=== PATIENT | female | born 2000 | race Caucasian/White ===

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

== ENCOUNTER 2020-04-23 08:21 | Emergency (ER) | payer OTHER, SELFPAY ==
[2020-04-23 08:35] VITALS: BP 131/85; PULSE 98; RESP 16; TEMP 36.6; O2SAT 100; BMI 34.0
--- NOTE | 2020-04-23 08:46 | ED_ITS ---
HPI - General Adult General: Chief complaint: Abdominal Pain Stated complaint: ABD Pain Time Seen by Provider: 04/23/20 08:35 History of Present Illness: HPI narrative: Patient complains about painful. That started this morning. Said she had a severe cramping felt like her vagina was going to fall out. Said the pain is eased up now she does feel better had some heavy clots. Has been off work controlled for the last 4 months. Used to be on progesterone only due to her PCOD. Patient does not think she can be right now but she is sexually active with unprotected intercourse denies any other illness complaint: Uterine cramping menstrual cycle Onset (ago): hour(s) Severity scale (1-10): 6 Quality: aching Pain Consistency: colicky Associated symptoms: Reports no associated symptoms; Deny chest pain, dyspnea, headache(s), nausea, rash or vomiting Review of Systems Const: Denies: fever(s), chills or body aches Eyes: Denies: change in vision or blurry vision ENMT: Denies: throat pain or nasal congestion Card: Denies: chest pain or dyspnea on exertion Resp: Denies: dyspnea, productive cough or non-productive cough GI: Denies: abdominal pain, nausea or vomiting : Reports: dysmenorrhea Musc: Denies: extremity pain Skin/Breast: Denies: rash Neuro: Denies: headache(s) Psych: Denies: anxiety or depression Shnae/Lymph: Denies: easy bruising PFSH ED PFSH: Surgical History Status post laparoscopic appendectomy 12/05/2018 Dr. Baez/[place], [place] Family History Sister Diabetes Father Heart disease Hypertension Stroke Grandfather Heart disease Paternal Hypertension Grandmother Hypertension Maternal and Paternal Grandfather No problems noted. Social History Smoking and tobacco status: never smoked Alcohol intake: never Female Reproductive History: Date of last menstrual period: 04/23/20 Physical Exam Const: COMMON NORMALS: no acute distress, average body habitus and patient oriented x3 HENMT: COMMON NORMALS: normocephalic HEAD & SCALP: normal to inspection and normocephalic FACE & SINUS: normal facial exam Eye: COMMON NORMALS: conjunctivae normal GENERAL EYE: appearance normal, both eyes and all related structures CONJUNCTIVA: Yes conjunctivae normal Neck/C-Spine: COMMON NORMALS: no JVD Chest: COMMONS NORMALS: normal inspection of the chest Resp: COMMON NORMALS: normal respiratory effort Cardio: COMMON NORMALS: no JVD, regular rate and regular rhythm RATE: regular rate RHYTHM: regular rhythm GI: COMMON NORMALS: Normal to inspection, nondistended, normoactive bowel sounds present Extremity: COMMON NORMALS: normal to inspection and full ROM Neuro: COMMON NORMALS: patient oriented x3 Course Vital Signs: Vital signs: Vital Signs Temperature 97.9 F 04/23/20 08:35 Pulse Rate 98 04/23/20 08:35 Respiratory Rate 18 04/23/20 09:54 Blood Pressure 131/85 04/23/20 08:35 Pulse Oximetry 100 04/23/20 08:35 MDM - General Adult MDM Narrative: Medical decision making narrative: Patient started menstrual cycle here 2 days ago. Woke up this morning with painful vaginal cramping heavier clots. Denies any discharge fever chills or problems urinating. Naproxen took care of pain. Patient continue naproxen follow-up primary care provider. Lab Data: Labs: Lab Results 04/23/20 04/23/20 04/23/20 Range/Units 08:50 08:50 08:50 WBC 12.7 (4.5-13.0) 10^3/ uL RBC 4.82 (4.1-5.3) 10^6/u L Hgb 14.1 (11.5-15.3) g/dL Hct 41.9 (37.0-47.0) % MCV 86.9 (81-99) fL MCH 29.3 (28.0-34.0) pg MCHC 33.7 (30.0-36.0) g/dL RDW 12.2 (12.1-15.1) % Plt Count 350 (130-400) 10^3/c mm MPV 9.4 (7.4-10.4) fL Neut % (Auto) 65.0 % Lymph % (Auto) 26.7 % [place] % (Auto) 6.3 % Eos % (Auto) 1.2 % Baso % (Auto) 0.4 % Neut # (Auto) 8.27 H (1.8-8.0) 10^3/u L Lymph # (Auto) 3.4 (1.5-6.5) 10^3/u L [place] # (Auto) 0.8 (0.2-0.9) 10^3/u L Eos # (Auto) 0.2 (0.0-0.8) 10^3/u L Baso # (Auto) 0.1 (0.0-0.1) 10^3/u L Nucleated RBC % (a uto) 0 % Nucleated RBCs # 0.0 /100WBC Ser , Arianna i-Qnt 0.50 mIU/mL Urine Color Dark yellow (Yellow) Urine Appearance Cloudy (CLEAR) Urine pH 5 (5-7) Ur Specific Gravit y 1.030 (1.005-1.030) Urine Protein 1+ H (Negative) Urine Glucose (UA) Norm (Normal) Urine Ketones 1+ H (Negative) Urine Blood 3+ H (Negative) Urine Nitrate Negative (Negative) Urine Bilirubin 1+ H (Negative) Urine Urobilinogen Norm (Negative) mg/dL Ur Leukocyte Monae ase Trace H (Negative) Urine RBC Too numerous to c nt H (0-2) /hpf Urine WBC 0-4 H (0-5) /hpf Ur Squamous Epith Cells 0-4 H (0-5) /hpf Amorphous Sediment Not Reportable Urine Bacteria 1+ H (NONE) /hpf Discharge Plan Discharge Patient Disposition: Home Clinical Impression: Menstrual pain Condition: Stable Prescriptions: New Naprosyn 500 mg tablet 500 mg PO TID PRN (Reason: pain) Qty: 14 RF: 0 No Action famotidine 20 mg tablet 20 mg PO DAILY Qty: 30 RF: 0 cetirizine 10 mg tablet 10 mg PO DAILY Qty: 30 RF: 0 Discharge Orders: Discharge ED (Routine); Ordered 04/23/20 Ordered By: David Garza Referrals: Negin Garrett MD [Primary Care Provider] - Discharge Diet: Usual diet Discharge Activity: Resume usual activity Patient Instructions: Menorrhagia (ED) Activity Restrictions/Additional Instructions: Follow-up with medical provider as directed. Take medications as prescribed. Return to the ER or your medical provider if condition worsens. Please read and understand discharge instructions. If any questions ask please. Coding Level of Care Code ED Fumigator And Sterilizer for Robinson Fwd Exam Comprehensive
[2020-04-23] MEDS: naproxen 500 mg Tablet PO (08:57)
[2020-04-23 09:07] LABS: Basophils # 0.1 10^3/uL (0.0-0.1); Basophils % 0.4 %; Eosinophils # 0.2 10^3/uL (0.0-0.8); Eosinophils % 1.2 %; Hematocrit 41.9 % (37.0-47.0); Hemoglobin 14.1 g/dL (11.5-15.3); Lymphocytes # 3.4 10^3/uL (1.5-6.5); Lymphocytes % 26.7 %; Mean Corpuscular HGB Conc 33.7 g/dL (30.0-36.0); Mean Corpuscular Hemoglobin 29.3 pg (28.0-34.0); Mean Corpuscular Volume 86.9 fL (81-99); Mean Platelet Volume 9.4 fL (7.4-10.4); Monocytes # 0.8 10^3/uL (0.2-0.9); Monocytes % 6.3 %; Neutrophils # 8.27 10^3/uL (1.8-8.0); Nucleated Red Blood Cells % 0 %; Platelet Count 350 10^3/cmm (130-400); Red Blood Count 4.82 10^6/uL (4.1-5.3); Red Cell Distribution Width 12.2 % (12.1-15.1); White Blood Count 12.7 10^3/uL (4.5-13.0)
[2020-04-23 09:08] LABS: Add Urine Microscopic? YES; Bilirubin Urine 1+ (Negative); Blood Urine 3+ (Negative); Glucose Urine UA Norm (Normal); Ketones Urine 1+ (Negative); Leukocyte Esterase Urine Trace (Negative); Nitrate Urine Negative (Negative); Protein Urine 1+ (Negative); Urine Appearance Cloudy (CLEAR); Urine Color Dark Yellow (Yellow); Urobilinogen Urine Norm (Negative); pH Urine 5 (5-7)
[2020-04-23 09:15] LABS: Add Urine Culture? Yes; Bacteria Urine 1+ /hpf; RBC Urine TOO NUMEROUS TO CNT /hpf (0-2); Squamous Epithelial Cell Urine 0-4 /hpf (0-5); WBC Urine 0-4 /hpf (0-5)
[2020-04-23 09:27] VITALS: RESP 18
[2020-04-23 09:54] VITALS: RESP 18
== END 2020-04-23 09:56 | disposition home or self-care (01) ==
PROVIDERS: Emergency Provider Nurse Practitioner Family; PCP Family Medicine
DX: N94.6 Dysmenorrhea, unspecified (principal)
CPT/HCPCS: 12345; 81001; 84702; 85025; 87086; 99283

== ENCOUNTER → 2020-06-20 16:34 | Outpatient (BNVA) | payer OTHER, SELFPAY | PROVIDERS: PCP Physician Assistant; Visit Provider Nurse Practitioner Family | DX: N76.0 Acute vaginitis (principal); R30.0 Dysuria; B96.89 Other specified bacterial agents as the cause of diseases classified elsewhere | CPT/HCPCS: 81000; 87491; 87591; 87661 ==

== ENCOUNTER 2023-02-11 20:02 | Emergency (ER) | payer BC, MEDICAID, SELFPAY ==
[2023-02-11 20:15] VITALS: BP 147/90; PULSE 72; RESP 18; TEMP 36.5; O2SAT 98; BMI 32.1
--- NOTE | 2023-02-11 20:27 | ED_ITS ---
HPI - Female Genitourinary General: Chief complaint: Urogenital-Female Stated complaint: abdomen pain Time Seen by Provider: 02/11/23 20:22 History of Present Illness: Patient presents to the ER with left upper quadrant intermittent abdominal pain x2 days and also having pain burning and frequency when she urinates with blood in her urine for the last couple days. Review of Systems General: Reports: 10 or more systems reviewed and unremarkable except in HPI and below PFSH ED PFSH: Surgical History Status post laparoscopic appendectomy 12/05/2018 Dr. Baez/[place], [place] Family History Sister Diabetes Father Heart disease Hypertension Stroke Grandfather Heart disease Paternal Hypertension Grandmother Hypertension Maternal and Paternal Grandfather No problems noted. Social History Smoking and tobacco/nicotine status: never used tobacco/nicotine Alcohol intake: never Substance/Drug Use: never Physical Exam Const: COMMON NORMALS: no acute distress, average body habitus, patient oriented x3, no limitations, healthy appearing, alert and well nourished HENMT: COMMON NORMALS: normocephalic, atraumatic, hearing grossly normal bilaterally, external ears normal, Normal external nose present, moist oral mucous membranes and oropharynx normal HEAD & SCALP: normocephalic and atraumatic NOSE: Normal external nose present EXTERNAL EAR: Yes external ears normal Neck/C-Spine: COMMON NORMALS: no JVD Chest: COMMONS NORMALS: normal inspection of the chest and normal palpation of entire chest wall Resp: COMMON NORMALS: normal respiratory effort, No retractions, No use of accessory muscles and clear to auscultation bilaterally AUSCULTATION: clear to auscultation bilaterally Cardio: COMMON NORMALS: no JVD, regular rate, regular rhythm, S1 normal heart sound present, S2 normal heart sound present, No gallops present (Cardio), No clicks present (Cardio), No murmurs present (Cardio) and No rub (Cardio) RA TE: regular rate RHYTHM: regular rhythm HEART SOUNDS: S1 normal heart sound present and S2 normal heart sound present GI: COMMON NORMALS: Normal to inspection, nondistended, normoactive bowel sounds present, Soft to palpation, non-tender, No hepatosplenomegaly present and no masses PALPATION: Yes Soft to palpation and Yes No hepatosplenomegaly present Neuro: COMMON NORMALS: patient oriented x3 SENSORIUM/ORIENTATION: Yes alert Course Vital Signs: Vital signs: Vital Signs Temperature 97.7 F 02/11/23 20:15 Pulse Rate 72 02/11/23 20:15 Respiratory Rate 18 02/11/23 20:15 Blood Pressure 147/90 02/11/23 20:15 Pulse Oximetry 98 02/11/23 20:15 MDM - Female Medical Decision Making Blood work was obtained which revealed a white count of 14,000, urinalysis showed a urinary tract infection. Patient was given Cipro in ER and will be discharged home on Cipro. Patient should follow-up with her family practice physician in the next 7 to 10 days for further evaluation and treatment as needed. Differential Diagnosis Likely abdominal pain; Unlikely acute appendicitis, calculus of kidney, constipation, diverticulitis, endometriosis, gastroenteritis, pancreatitis or small bowel obstruction Medical Records I reviewed the patient's medical records. Lab Data I reviewed the patient's lab results. 02/11/23 20:14 02/11/23 20:14 Laboratory Results WBC 14.17 10^3/uL (3.29-11.43) H 02/11/23 20:14 RBC 4.71 10^6/uL (3.85-5.65) 02/11/23 20:14 Hgb 11.40 g/dL (11.27-16.99) 02/11/23 20:14 Hct 37.0 % (36-47) 02/11/23 20:14 MCV 78.6 fl (85-98) L 02/11/23 20:14 MCH 24.2 pg (27-33) L 02/11/23 20:14 MCHC 30.8 g/dL (30-55) 02/11/23 20:14 RDW 14.5 % (12.1-15.1) 02/11/23 20:14 Plt Count 349 10^3/cmm (157-399) 02/11/23 20:14 MPV 9.7 fL (7.4-10.4) 02/11/23 20:14 Neut % (Auto) 62.7 % 02/11/23 20:14 Lymph % (Auto) 29.0 % 02/11/23 20:14 [place] % (Auto) 4.7 % 02/11/23 20:14 Eos % (Auto) 2.6 % 02/11/23 20:14 Baso % (Auto) 0.6 % 02/11/23 20:14 Neut # (Auto) 8.89 10^3/uL (1.8-7.7) H 02/11/23 20:14 Lymph # (Auto) 4.1 10^3/uL (0.8-4.8) 02/11/23 20:14 [place] # (Auto) 0.7 10^3/uL (0.2-0.9) 02/11/23 20:14 Eos # (Auto) 0.4 10^3/uL (0.0-0.8) 02/11/23 20:14 Baso # (Auto) 0.1 10^3/uL (0.0-0.1) 02/11/23 20:14 Nucleated RBC % (auto) 0 % 02/11/23 20:14 Nucleated RBCs # 0.0 /100WBC 02/11/23 20:14 Sodium 139 mmol/L (136-145) 02/11/23 20:14 Potassium 3.6 mmol/L (3.5-5.1) 02/11/23 20:14 Chloride 104 mmol/L (98-107) 02/11/23 20:14 Carbon Dioxide 23 mmol/L (22-29) 02/11/23 20:14 Anion Gap 15.6 (5-19) 02/11/23 20:14 BUN 11 mg/dL (6-20) 02/11/23 20:14 Creatinine 0.8 mg/dL (0.5-0.9) 02/11/23 20:14 GFR Calculation 89.7 mL/min (90-130) L 02/11/23 20:14 Glucose 97 mg/dL (65-115) 02/11/23 20:14 Calculated Osmolality 287 mOsm/kg (285-295) 02/11/23 20:14 Calcium 9.1 mg/dL (8.5-10.5) 02/11/23 20:14 Total Bilirubin 0.4 mg/dL (0.15-1.2) 02/11/23 20:14 AST 39 U/L (0-32) H 02/11/23 20:14 ALT 87 U/L (0-33) H 02/11/23 20:14 Alkaline Phosphatase 61 U/L (35-105) 02/11/23 20:14 Total Protein 7.4 g/dL (6.6-8.7) 02/11/23 20:14 Albumin 4.4 g/dL (3.5-5.2) 02/11/23 20:14 Globulin 3.0 g/dL (1.3-4.6) 02/11/23 20:14 Lipase 37 U/L (13-60) 02/11/23 20:14 HCG, Qual Negative (Negative) 02/11/23 20:14 Urine Color Yellow (Yellow) 02/11/23 20:47 Urine Appearance Hazy (CLEAR) A 02/11/23 20:47 Urine pH 5 (5-7) 02/11/23 20:47 Ur Specific [place] 1.020 (1.005-1.030) 02/11/23 20:47 Urine Protein 3+ (Negative) H 02/11/23 20:47 Urine Glucose (UA) Norm (Normal) 02/11/23 20:47 Urine Ketones 1+ (Negative) H 02/11/23 20:47 Urine Blood 3+ (Negative) H 02/11/23 20:47 Urine Nitrate Positive (Negative) H 02/11/23 20:47 Urine Bilirubin Neg (Negative) 02/11/23 20:47 Urine Urobilinogen Neg mg/dL (Negative) 02/11/23 20:47 Ur Leukocyte Esterase 2+ (Negative) H 02/11/23 20:47 Urine RBC 40-50 /hpf (0-2) H 02/11/23 20:47 Urine WBC 15-25 /hpf (0-5) H 02/11/23 20:47 Ur Squamous Epith Cells 5-10 /hpf (0-5) H 02/11/23 20:47 Amorphous Sediment Not Reportable 02/11/23 20:47 Urine Bacteria 1+ /hpf (NONE) H 02/11/23 20:47 No radiology studies performed this visit Discharge Plan Discharge Patient Disposition: Home Clinical Impression: Urinary tract infection Qualifiers: Urinary tract infection type: acute cystitis Hematuria presence: with hematuria Qualified Code(s): N30.01 - Acute cystitis with hematuria Condition: Stable Prescriptions: New ciprofloxacin HCl [Cipro] 500 mg tablet 500 mg PO Q12H Qty: 20 0RF No Action Control Pill PO metronidazole [Flagyl] 500 mg tablet 500 mg PO BID 7 Days Qty: 14 0RF Discharge Orders: Discharge ED (Routine); Ordered 02/11/23 Ordered By: Denis Guthrie Referrals: Kisha Germain PA [Primary Care Provider] - 1 week Patient Instructions: Urinary Tract Infection - Women Activity Restrictions/Additional Instructions: Your lab work in the ER reveals you have a urinary tract infection. Please take yourCiprofloxacin as directed and finish your prescription. please follow-up with your family practice physician in the next 7 to 10 days for further evaluation and treatment. Coding Level of Care Code ED [employer] Worker for Robinson Morfin
[2023-02-11 20:28] LABS: Basophils # 0.1 10^3/uL (0.0-0.1); Basophils % 0.6 %; Eosinophils # 0.4 10^3/uL (0.0-0.8); Eosinophils % 2.6 %; Lymphocytes # 4.1 10^3/uL (0.8-4.8); Mean Corpuscular HGB Conc 30.8 g/dL (30-55); Mean Corpuscular Hemoglobin 24.2 pg (27-33); Mean Corpuscular Volume 78.6 fl (85-98); Mean Platelet Volume 9.7 fL (7.4-10.4); Monocytes # 0.7 10^3/uL (0.2-0.9); Monocytes % 4.7 %; Neutrophils # 8.89 10^3/uL (1.8-7.7); Neutrophils % 62.7 %; Nucleated Red Blood Cells % 0 %; Platelet Count 349 10^3/cmm (157-399); Red Blood Count 4.71 10^6/uL (3.85-5.65); Red Cell Distribution Width 14.5 % (12.1-15.1); White Blood Count 14.17 10^3/uL (3.29-11.43)
[2023-02-11 20:44] LABS: Alanine Aminotransferase 87 U/L (0-33); Albumin Level 4.4 g/dL (3.5-5.2); Alkaline Phosphatase 61 U/L (35-105); Anion Gap 15.6 (5-19); Aspartate Amino Transferase 39 U/L (0-32); Blood Urea Nitrogen 11 mg/dL (6-20); Calcium 9.1 mg/dL (8.5-10.5); Carbon Dioxide 23 mmol/L (22-29); Chloride 104 mmol/L (98-107); Glomerular Filtration Rate 89.7 mL/min (90-130); Glucose 97 mg/dL (65-115); Lipase 37 U/L (13-60); Osmolality Calculated 287 mOsm/kg (285-295); Potassium 3.6 mmol/L (3.5-5.1); Sodium 139 mmol/L (136-145); Total Bilirubin 0.4 mg/dL (0.15-1.2); Total Protein 7.4 g/dL (6.6-8.7)
[2023-02-11 20:52] LABS: HCG, Serum Qual Negative (Negative)
[2023-02-11 21:06] LABS: Add Urine Microscopic? YES; Bilirubin Urine Neg (Negative); Blood Urine 3+ (Negative); Glucose Urine UA Norm (Normal); Ketones Urine 1+ (Negative); Leukocyte Esterase Urine 2+ (Negative); Nitrate Urine Positive (Negative); Protein Urine 3+ (Negative); Urine Appearance Hazy (CLEAR); Urine Color Yellow (Yellow); Urobilinogen Urine Neg (Negative); pH Urine 5 (5-7)
[2023-02-11 21:07] LABS: Add Urine Culture? Yes; Bacteria Urine 1+ /hpf; RBC Urine 40-50 /hpf (0-2); WBC Urine 15-25 /hpf (0-5)
[2023-02-11] MEDS: ciprofloxacin 500 mg Tablet PO (21:25)
== END 2023-02-11 21:29 | disposition home or self-care (01) ==
PROVIDERS: Emergency Medicine; Emergency Provider Emergency Medicine; PCP Physician Assistant
DX: N30.01 Acute cystitis with hematuria (principal)
CPT/HCPCS: 36415; 80053; 81001; 83690; 84703; 85025; 87077; 87086; 87186; 99283

== ENCOUNTER 2023-06-01 11:07 | Emergency (ER) | payer BC, MEDICAID, SELFPAY ==
[2023-06-01 11:22] VITALS: BP 138/80; PULSE 87; RESP 16; TEMP 37.3; O2SAT 97; BMI 35.6
[2023-06-01 12:24] VITALS: BP 111/63; PULSE 71; RESP 16; O2SAT 98
--- NOTE | 2023-06-01 12:30 | W.ED.DIZZY ---
HPI - Dizziness General: Chief Complaint: Dizziness Stated Complaint: 16 weeks preg, dizzy Time Seen by Provider: 06/01/23 12:08 History of Present Illness: HPI Narrative: Patient presents to the ER with complaints of feeling dizzy and having headache. This went off and on for about the last week. Patient is able to keep things down. Patient says just does not feel right. Patient is approximately 16 weeks with her fourth child. Patient was preeclamptic with her earlier pregnancies. Patient denies any coughs colds fevers chills Review of Systems General: Reports: 10 or more systems reviewed and unremarkable except in HPI and below PFSH ED PFSH: Surgical History Status post laparoscopic appendectomy 12/05/2018 Dr. Baez/[facility], [place], [place] Family History Sister Diabetes Father Heart disease Hypertension Stroke Grandfather Heart disease Paternal Hypertension Grandmother Hypertension Maternal and Paternal Grandfather No problems noted. Social History Smoking and tobacco/nicotine status: never used tobacco/nicotine Alcohol intake: never Substance/Drug Use: never Physical Exam Const: COMMON NORMALS: no acute distress, average body habitus, patient oriented x3, no limitations, healthy appearing, alert and well nourished HENMT: COMMON NORMALS: normocephalic, atraumatic, hearing grossly normal bilaterally, external ears normal, EAC's normal, Normal external nose present, moist oral mucous membranes and oropharynx normal HEAD & SCALP: normocephalic and atraumatic NOSE: Normal external nose present EXTERNAL EAR: Yes external ears normal EXTERNAL AUDITORY CANAL: EAC's normal Eye: COMMON NORMALS: Equal, round and reactive pupils present, EOMs intact bilaterally, conjunctivae normal and no scleral icterus CONJUNCTIVA: Yes conjunctivae normal PUPIL: Yes Equal, round and reactive pupils present Neck/C-Spine: COMMON NORMALS: no JVD Resp: COMMON NORMALS: normal respiratory effort, No retractions, No use of accessory muscles and clear to auscultation bilaterally AUSCULTATION: clear to auscultation bilaterally Cardio: COMMON NORMALS: no JVD, regular rate, regular rhythm, S1 normal heart sound present, S2 normal heart sound present, No gallops present (Cardio), No clicks present (Cardio), No murmurs present (Cardio) and No rub (Cardio) RATE: regular rate RHYTHM: regular rhythm HEART SOUNDS: S1 normal heart sound present and S2 normal heart sound present GI: COMMON NORMALS: Normal to inspection, nondistended, normoactive bowel sounds present, Soft to palpation, non-tender, No hepatosplenomegaly present and no masses PALPATION: Yes Soft to palpation and Yes No hepatosplenomegaly present Neuro: COMMON NORMALS: patient oriented x3 SENSORIUM/ORIENTATION: Yes alert Course Vital Signs: Vital signs: Vital Signs Temperature 99.1 F 06/01/23 11:22 Pulse Rate 76 06/01/23 14:00 Respiratory Rate 17 06/01/23 14:00 Blood Pressure 121/85 06/01/23 14:00 Pulse Oximetry 99 06/01/23 14:00 Oxygen Delivery Me thod Room Air 06/01/23 14:00 [facility] - Dizziness Medical Decision Making Patient had lab work was essentially unremarkable, white count 12.8 BUN/creatinine of 8 and 0.4 negative for protein in her urine, patient was given 1 L normal saline. Labs were discussed with patient and suggested she follow back up with her OB or family practitioner in the next week for reevaluation and further testing. Differential Diagnosis Unlikely adverse reaction to drug, benign paroxysmal positional vertigo, orthostatic hypotension, vertebral basilar insufficiency, cerebrovascular accident, acute vestibular neuronitis or transient cerebral ischemia Medical Records I reviewed the patient's medical records. Lab Data I reviewed the patient's lab results. 06/01/23 12:55 06/01/23 12:55 Laboratory Results WBC 12.85 10^3/uL (3.29-11.43) H 06/01/23 12:55 RBC 4.65 10^6/uL (3.85-5.65) 06/01/23 12:55 Hgb 12.30 g/dL (11.27-16.99) 06/01/23 12:55 Hct 37.9 % (36-47) 06/01/23 12:55 MCV 81.5 fl (85-98) L 06/01/23 12:55 MCH 26.5 pg (27-33) L 06/01/23 12:55 MCHC 32.5 g/dL (30-55) 06/01/23 12:55 RDW 14.0 % (12.1-15.1) 06/01/23 12:55 Plt Count 328 10^3/cmm (157-399) 06/01/23 12:55 MPV 9.6 fL (7.4-10.4) 06/01/23 12:55 Neut % (Auto) 70.2 % 06/01/23 12:55 Lymph % (Auto) 21.6 % 06/01/23 12:55 [place] % (Auto) 6.0 % 06/01/23 12:55 Eos % (Auto) 1.2 % 06/01/23 12:55 Baso % (Auto) 0.3 % 06/01/23 12:55 Neut # (Auto) 9.02 10^3/uL (1.8-7.7) H 06/01/23 12:55 Lymph # (Auto) 2.8 10^3/uL (0.8-4.8) 06/01/23 12:55 [place] # (Auto) 0.8 10^3/uL (0.2-0.9) 06/01/23 12:55 Eos # (Auto) 0.2 10^3/uL (0.0-0.8) 06/01/23 12:55 Baso # (Auto) 0.0 10^3/uL (0.0-0.1) 06/01/23 12:55 Nucleated RBC % (auto) 0 % 06/01/23 12:55 Nucleated RBCs # 0.0 /100WBC 06/01/23 12:55 Sodium 133 mmol/L (136-145) L 06/01/23 12:55 Potassium 4.0 mmol/L (3.5-5.1) 06/01/23 12:55 Chloride 100 mmol/L (98-107) 06/01/23 12:55 Carbon Dioxide 24 mmol/L (22-29) 06/01/23 12:55 Anion Gap 13.0 (5-19) 06/01/23 12:55 BUN 8 mg/dL (6-20) 06/01/23 12:55 Creatinine 0.4 mg/dL (0.5-0.9) L 06/01/23 12:55 GFR Calculation 197.8 mL/min (90-130) H 06/01/23 12:55 Glucose 96 mg/dL (65-115) 06/01/23 12:55 POC Glucose 86 mg/dL (70-110) 06/01/23 13:54 Calculated Osmolality 274 mOsm/kg (285-295) L 06/01/23 12:55 Calcium 9.0 mg/dL (8.5-10.5) 06/01/23 12:55 Total Bilirubin 0.2 mg/dL (0.15-1.2) 06/01/23 12:55 AST 25 U/L (0-32) 06/01/23 12:55 ALT 23 U/L (0-33) 06/01/23 12:55 Alkaline Phosphatase 76 U/L (35-105) 06/01/23 12:55 Total Protein 7.7 g/dL (6.6-8.7) 06/01/23 12:55 Albumin 4.1 g/dL (3.5-5.2) 06/01/23 12:55 Globulin 3.6 g/dL (1.3-4.6) 06/01/23 12:55 Lipase 44 U/L (13-60) 06/01/23 12:55 Urine Color Yellow (Yellow) 06/01/23 12:39 Urine Appearance Sl hazy (CLEAR) A 06/01/23 12:39 Urine pH 6 (5-7) 06/01/23 12:39 Ur Specific [place] 1.020 (1.005-1.030) 06/01/23 12:39 Urine Protein Neg (Negative) 06/01/23 12:39 Urine Glucose (UA) Norm (Normal) 06/01/23 12:39 Urine Ketones Negative (Negative) 06/01/23 12:39 Urine Blood Neg (Negative) 06/01/23 12:39 Urine Nitrate Negative (Negative) 06/01/23 12:39 Urine Bilirubin Neg (Negative) 06/01/23 12:39 Urine Urobilinogen Norm mg/dL (Negative) 06/01/23 12:39 Ur Leukocyte Esterase Negative (Negative) 06/01/23 12:39 Urine RBC None /hpf (0-2) 06/01/23 12:39 Urine WBC Rare /hpf (0-5) 03/03/24 12:39 Ur Squamous Epith Cells 10-15 /hpf (0-5) H 06/01/23 12:39 Amorphous Sediment Not Reportable 06/01/23 12:39 Urine Bacteria 1+ /hpf (NONE) H 06/01/23 12:39 No radiology studies performed this visit Discharge Plan Discharge Patient Disposition: Home Clinical Impression: Dizziness Headache Qualifiers: Headache type: unspecified Headache chronicity pattern: acute headache Intractability: not intractable Qualified Code(s): R51.9 - Headache, unspecified Condition: Stable Prescriptions: No Action No Known Home Medications Discharge Orders: Discharge ED (Routine); Ordered 06/01/23 Ordered By: Denis Guthrie Referrals: Kisha Germain PA [Primary Care Provider] - 1 week Patient Instructions: Headache, Dizziness (ED) Activity Restrictions/Additional Instructions: Your evaluation in ER did not show any acute cause of your dizziness or headache. Please take [id number] Tylenol as needed as directed for your headache. Please drink plenty of fluids. Please follow-up with your family practice physician or OB within the next 7 days for further evaluation and treatment. Coding Level of Care Code ED Food Aide for Robinson Morfin
--- NOTE | 2023-06-01 12:53 | PC.PHAR ---
pt states takes no prescription or otc medications
[2023-06-01 12:57] LABS: Add Urine Microscopic? YES; Bilirubin Urine Neg (Negative); Blood Urine Neg (Negative); Glucose Urine UA Norm (Normal); Ketones Urine Negative (Negative); Leukocyte Esterase Urine Negative (Negative); Nitrate Urine Negative (Negative); Protein Urine Neg (Negative); Urine Appearance SL Hazy (CLEAR); Urine Color Yellow (Yellow); Urobilinogen Urine Norm (Negative); pH Urine 6 (5-7)
[2023-06-01 12:58] LABS: Add Urine Culture? No; Bacteria Urine 1+ /hpf; WBC Urine RARE /hpf (0-5)
[2023-06-01 13:03] LABS: Basophils % 0.3 %; Eosinophils # 0.2 10^3/uL (0.0-0.8); Eosinophils % 1.2 %; Hematocrit 37.9 % (36-47); Lymphocytes # 2.8 10^3/uL (0.8-4.8); Lymphocytes % 21.6 %; Mean Corpuscular HGB Conc 32.5 g/dL (30-55); Mean Corpuscular Hemoglobin 26.5 pg (27-33); Mean Corpuscular Volume 81.5 fl (85-98); Mean Platelet Volume 9.6 fL (7.4-10.4); Monocytes # 0.8 10^3/uL (0.2-0.9); Neutrophils # 9.02 10^3/uL (1.8-7.7); Neutrophils % 70.2 %; Nucleated Red Blood Cells % 0 %; Platelet Count 328 10^3/cmm (157-399); Red Blood Count 4.65 10^6/uL (3.85-5.65); White Blood Count 12.85 10^3/uL (3.29-11.43)
[2023-06-01 13:24] LABS: Alanine Aminotransferase 23 U/L (0-33); Albumin Level 4.1 g/dL (3.5-5.2); Alkaline Phosphatase 76 U/L (35-105); Aspartate Amino Transferase 25 U/L (0-32); Blood Urea Nitrogen 8 mg/dL (6-20); Carbon Dioxide 24 mmol/L (22-29); Chloride 100 mmol/L (98-107); Globulin 3.6 g/dL (1.3-4.6); Glomerular Filtration Rate 197.8 mL/min (90-130); Glucose 96 mg/dL (65-115); Lipase 44 U/L (13-60); Osmolality Calculated 274 mOsm/kg (285-295); Sodium 133 mmol/L (136-145); Total Bilirubin 0.2 mg/dL (0.15-1.2); Total Protein 7.7 g/dL (6.6-8.7)
[2023-06-01 13:29] LABS: Creatinine Clr Calc Pharmacy 217.4488
[2023-06-01 13:58] LABS: Glucose Point of Care 86 mg/dL (70-110)
[2023-06-01 14:00] VITALS: BP 121/85; PULSE 76; RESP 17; O2SAT 99
[2023-06-01] MEDS: sodium chloride 0.9% 1,000 ML 999 ML IV (14:00)
[2023-06-01 15:07] VITALS: BP 122/64; PULSE 84; RESP 17; O2SAT 100
== END 2023-06-01 15:07 | disposition home or self-care (01) ==
PROVIDERS: Emergency Medicine; Emergency Provider Emergency Medicine; PCP Physician Assistant
DX: R42 Dizziness and giddiness (principal); R51.9 Headache, unspecified
CPT/HCPCS: 36416; 80053; 81001; 82962; 83690; 85025; 96360; 99284; J7030